=== PATIENT | female | born 1950 | race Caucasian/White ===

== ENCOUNTER 2020-03-30 20:43 | Emergency (ER) | payer OTHER, MEDICAID ==
[~2020-03-30] VITALS: Ht 160 cm; Wt 68.5 kg
[2020-03-30 20:58] VITALS: Ht 160 cm; Wt 68.5 kg
[2020-03-30 22:07] LABS: BASOPHIL % 0.8 % (0-2); PLATELET COUNT 359 x10^3mcL (130-400); RED CELL DISTRIBUTION WIDTH 13.7 % (11.5-14.5)
[2020-03-30 22:19] LABS: CALCIUM 9.7 mg/dL (8.5-10.1); CARBON DIOXIDE 33.4 mmol/L (21-32); CREATININE SERUM 1.1 mg/dL (0.6-1.0); POTASSIUM SERUM 3.9 mmol/L (3.5-5.1)
[2020-03-30 22:23] LABS: ALBUMIN 4.2 g/dL (3.4-5.0); BILIRUBIN TOTAL 0.4 mg/dL (0.20-1.00); C REACTIVE PROTEIN 0.3 mg/dL (<=0.9); TOTAL PROTEIN, SERUM 7.9 g/dL (6.4-8.2)
[2020-03-31 00:58] VITALS: BP 132/72
== END 2020-03-31 00:58 | disposition home or self-care (01) ==
LOC: ED 20:43
PROVIDERS: Emergency Medicine
DX: J44.1 Chronic obstructive pulmonary disease with (acute) exacerbation (principal); I10 Essential (primary) hypertension; E11.9 Type 2 diabetes mellitus without complications; Z20.828 Contact with and (suspected) exposure to other viral communicable diseases
CPT/HCPCS: 83880; 85378; 87804; J2930; J7613

== ENCOUNTER 2020-05-16 22:01 | Emergency (ER) | payer OTHER, BC ==
[~2020-05-16] VITALS: Ht 154.9 cm; Wt 69.0 kg
[2020-05-16 22:42] VITALS: BP 101/71; Ht 154.9 cm; Wt 69.0 kg
== END 2020-05-17 04:21 | disposition home or self-care (01) ==
LOC: ED 22:01
DX: J44.1 Chronic obstructive pulmonary disease with (acute) exacerbation (principal)
CPT/HCPCS: J7512